=== PATIENT | male | born 1965 | race American Indian/Alaskan Native ===

== ENCOUNTER 2017-01-26 09:29 | Emergency (ER) | payer SELFPAY ==
[2017-01-26 09:46] VITALS: BP 128/81
--- NOTE | 2017-01-26 11:11 | Emergency Department Report ---
HPI - General Chief Complaint: Skin Rash Time Seen by Provider: 01/26/17 11:05 - HPI HPI: Patient is a 51-year-old male with a history of eczema who presents to the ED complaining of eczema break breakout for the past 2-3 weeks. Patient states he has had a flareup for the past 3 weeks. Patient states he got some over-the- counter cream is applied on it has not gotten better. Patient states that eczema like rash is on both of his posterior surfaces of his hands and the back of his neck. Patient admits moderate to severe itching. He denies fever, nausea, vomiting, shortness of breath or any other problems. ED Past Medical Hx - Past Medical History Previous Medical History?: Yes Hx Asthma: Yes Additional medical history: eczema - Surgical History Past Surgical History?: No - Social History Smoking Status: Never Smoker Substance Use Type: Prescribed - Medications Home Medications: Home Medications Medication Instructions Recorded Confirmed Last Taken Type Hyoscyamine Subl [Levsin Sl] 0.125 mg PO Q6HR #15 tablet 06/22/13 Unknown Rx Clindamycin [Clindamycin CAP] 300 mg PO BID #10 cap 01/26/17 Unknown Rx Prednisone [predniSONE 10 mg 10 mg PO .TAPER #1 tab.ds.pk 01/26/17 Unknown Rx (6-Day Pack, 21 Tabs)] Triamcinolone 0.1% [Kenalog 0.1% 1 applic TP TID #1 tube 01/26/17 Unknown Rx OINT] diphenhydrAMINE [Benadryl CAP] 25 mg PO QHS #20 capsule 01/26/17 Unknown Rx ED Review of Systems ROS: Stated complaint: RASH ALL OVER Other details as noted in HPI Constitutional: denies: chills, fever Eyes: denies: eye pain, eye discharge, vision change ENT: denies: ear pain, throat pain Respiratory: denies: cough, shortness of breath, wheezing Cardiovascular: denies: chest pain, palpitations Endocrine: no symptoms reported Gastrointestinal: denies: abdominal pain, nausea, diarrhea Genitourinary: denies: urgency, dysuria Musculoskeletal: denies: back pain, joint swelling, arthralgia Skin: pruritus. denies: rash, lesions Neurological: denies: headache, weakness, numbness, paresthesias, confusion Psychiatric: denies: anxiety, depression Hematological/Lymphatic: denies: easy bleeding, easy bruising Physical Exam - Physical Exam Vital Signs: Vital Signs 01/26/17 09:42 Temperature 97.8 F Pulse Rate 64 Respiratory 18 Rate Blood Pressure 128/81 O2 Sat by Pulse 97 Oximetry Physical Exam: GENERAL: Alert and oriented x3, no apparent distress, Normal Gait, atraumatic. MOUTH:Mouth is well hydrated and without lesions. Tonsils nonerythematous or swollen, Uvula midline, Tongue not elevated. Mucous membranes are moist. Posterior pharynx clear, no exudate or lesions. Patent airways. NECK: Supple. Non edematous, No lymphadenopathy or thyromegaly. EXTREMITIES/MUSCULOSKELETAL: Raised, plaque-like, excoriating lesions on posterior surfaces of the hands and neck. Consistent with infected eczema No cyanosis, clubbing, rash, lesions or edema. Full ROM bilaterally. SKIN: All other areas of the skin was Warm and dry, No other lesions, No ulceration or induration present. ED Course Vital Signs 01/26/17 09:42 Temperature 97.8 F Pulse Rate 64 Respiratory 18 Rate Blood Pressure 128/81 O2 Sat by Pulse 97 Oximetry ED Medical Decision Making - Medical Decision Making Patient is a 51-year-old male presents to ED with infected eczema. Patient received Decadron and Benadryl in the ED. Discussed the patient Patient will be sent home on a course of corticosteroids as well as antibiotics and antibiotic changed agents. Discussed the patient follow up with primary care physician. Vital signs are normal patient is in no acute distress Critical care attestation.: If time is entered above; I have spent that time in minutes in the direct care of this critically ill patient, excluding procedure time. ED Disposition Clinical Impression: Atopic dermatitis Qualifiers: Atopic dermatitis type: other Qualified Code(s): L20.89 - Other atopic dermatitis; L20.8 - Other atopic dermatitis Disposition: DC-01 TO HOME OR SELFCARE Is pt being admited?: No Does the pt Need Aspirin: No Condition: Stable Instructions: Eczema (ED), Acute Rash (ED) Prescriptions: diphenhydrAMINE [Benadryl CAP] 25 mg PO QHS #20 capsule Clindamycin [Clindamycin CAP] 300 mg PO BID #10 cap Prednisone [predniSONE 10 mg (6-Day Pack, 21 Tabs)] 10 mg PO .TAPER #1 tab.ds.pk Triamcinolone 0.1% [Kenalog 0.1% OINT] 1 applic TP TID #1 tube Referrals: PRIMARY CARE, [Primary Care Provider] - 3-5 Days [facility] [Outside] - 3-5 Days [facility] [Outside] - 3-5 Days [facility] [Outside] - 3-5 Days Forms: Accompanied Note, Work/School Release Form(ED) Time of Disposition: 11:57
[2017-01-26] MEDS ORDERED: DECADRON IM ONE (11:32)
[2017-01-26] MEDS ORDERED: BENADRYL PO ONE (11:38)
== END 2017-01-26 12:11 | disposition home or self-care (01) ==
LOC: ED 09:29
DX: L20.89 Other atopic dermatitis (principal); J45.909 Unspecified asthma, uncomplicated
CPT/HCPCS: 96372; 99282; J1100

== ENCOUNTER 2017-02-14 05:35 | Emergency (ER) | payer OTHER ==
[2017-02-14 05:41] VITALS: BP 127/81
[2017-02-14] MEDS ORDERED: DECADRON IM ONE (11:07)
[2017-02-14] MEDS ORDERED: BENADRYL PO ONE (11:07)
--- NOTE | 2017-02-14 11:09 | Emergency Department Report ---
- General Chief complaint: Skin Rash Stated complaint: RASH Time Seen by Provider: 02/14/17 11:05 Source: patient Mode of arrival: Ambulatory Limitations: No Limitations - History of Present Illness Initial comments: Patient reports generalized eczema skin rash that initially started one week ago not relieved with prescribed medications given in the ED last week complaint: rash Onset/Timin -: week(s) Tetanus Up to Date: no Location: generalized Severity: severe Severity scale (0 -10): 9 Quality: constant Consistency: constant Improves with: none Worsens with: none Context: other (unknown) Associated symptoms: itching Treatments Prior to Arrival: other (oral steroids) - Related Data Previous Rx's Medication Instructions Recorded Last Taken Type Hyoscyamine Subl [Levsin Sl] 0.125 mg PO Q6HR #15 tablet 06/22/13 Unknown Rx Clindamycin [Clindamycin CAP] 300 mg PO BID #10 cap 01/26/17 Unknown Rx diphenhydrAMINE [Benadryl CAP] 25 mg PO QHS #20 capsule 01/26/17 Unknown Rx Prednisone [predniSONE 10 mg 10 mg PO .TAPER #1 tab.ds.pk 02/14/17 Unknown Rx (6-Day Pack, 21 Tabs)] Triamcinolone 0.1% [Kenalog 0.1% 1 applic TP TID #1 tube 02/14/17 Unknown Rx OINT] hydrOXYzine HCL [Atarax] 10 mg PO Q6HR #20 tablet 02/14/17 Unknown Rx Allergies Allergy/AdvReac Type Severity Reaction Status Date / Time Penicillins Allergy Rash Verified 06/22/13 17:18 Abscess Boil HPI - HPI Chief Complaint: Skin Rash Stated Complaint: RASH Home Medications: Previous Rx's Medication Instructions Recorded Last Taken Type Hyoscyamine Subl [Levsin Sl] 0.125 mg PO Q6HR #15 tablet 06/22/13 Unknown Rx Clindamycin [Clindamycin CAP] 300 mg PO BID #10 cap 01/26/17 Unknown Rx diphenhydrAMINE [Benadryl CAP] 25 mg PO QHS #20 capsule 01/26/17 Unknown Rx Prednisone [predniSONE 10 mg 10 mg PO .TAPER #1 tab.ds.pk 02/14/17 Unknown Rx (6-Day Pack, 21 Tabs)] Triamcinolone 0.1% [Kenalog 0.1% 1 applic TP TID #1 tube 02/14/17 Unknown Rx OINT] hydrOXYzine HCL [Atarax] 10 mg PO Q6HR #20 tablet 02/14/17 Unknown Rx Allergies/Adverse Reactions: Allergies Allergy/AdvReac Type Severity Reaction Status Date / Time Penicillins Allergy Rash Verified 06/22/13 17:18 ED Review of Systems ROS: Stated complaint: RASH Other details as noted in HPI Constitutional: denies: chills, diaphoresis, fever, malaise, weakness Eyes: denies: eye pain ENT: denies: ear pain, throat pain Respiratory: denies: cough, orthopnea, shortness of breath, SOB with exertion, SOB at rest Cardiovascular: denies: chest pain, palpitations, dyspnea on exertion, orthopnea , edema, syncope Gastrointestinal: denies: abdominal pain, nausea, vomiting, diarrhea, constipation Musculoskeletal: denies: back pain, joint swelling, arthralgia Skin: rash, pruritus. denies: lesions, change in color, change in hair/nails Neurological: denies: headache, weakness, numbness, paresthesias, confusion, abnormal gait, vertigo Psychiatric: denies: anxiety, depression Hematological/Lymphatic: denies: easy bleeding, easy bruising, swollen glands ED Past Medical Hx - Past Medical History Hx Asthma: Yes Additional medical history: eczema - Social History Smoking Status: Never Smoker Substance Use Type: None - Medications Home Medications: Home Medications Medication Instructions Recorded Confirmed Last Taken Type Hyoscyamine Subl [Levsin Sl] 0.125 mg PO Q6HR #15 tablet 06/22/13 Unknown Rx Clindamycin [Clindamycin CAP] 300 mg PO BID #10 cap 01/26/17 Unknown Rx diphenhydrAMINE [Benadryl CAP] 25 mg PO QHS #20 capsule 01/26/17 Unknown Rx Prednisone [predniSONE 10 mg 10 mg PO .TAPER #1 tab.ds.pk 02/14/17 Unknown Rx (6-Day Pack, 21 Tabs)] Triamcinolone 0.1% [Kenalog 0.1% 1 applic TP TID #1 tube 02/14/17 Unknown Rx OINT] hydrOXYzine HCL [Atarax] 10 mg PO Q6HR #20 tablet 02/14/17 Unknown Rx ED Physical Exam - General Limitations: No Limitations General appearance: alert, in no apparent distress - Head Head exam: Present: atraumatic, normocephalic, normal inspection - ENT ENT exam: Present: normal exam, normal orophraynx, mucous membranes moist - Neck Neck exam: Present: normal inspection, full ROM. Absent: tenderness, meningismus, lymphadenopathy, thyromegaly - Respiratory Respiratory exam: Present: normal lung sounds bilaterally. Absent: respiratory distress, wheezes, rales, rhonchi, stridor, chest wall tenderness, accessory muscle use, decreased breath sounds, prolonged expiratory - Cardiovascular Cardiovascular Exam: Present: regular rate, normal rhythm, normal heart sounds. Absent: systolic murmur, diastolic murmur, rubs, gallop - Back Exam Back exam: Present: normal inspection, full ROM, rash noted (maculopapular eczematous appearing rask upper back). Absent: CVA tenderness (L) - Neurological Exam Neurological exam: Present: alert, oriented X3, CN II-XII intact, normal gait, reflexes normal. Absent: abnormal gait, motor sensory deficit - Psychiatric Psychiatric exam: Present: normal affect, normal mood - Skin Skin exam: Present: rash (maculopapular eczematous appearing rash to hands, abdominal and upper back) ED Course Vital Signs 02/14/17 02/14/17 05:38 05:45 Temperature 97.7 F 97.7 F Pulse Rate 62 68 Respiratory 16 16 Rate Blood Pressure 127/81 127/81 O2 Sat by Pulse 99 99 Oximetry ED Medical Decision Making - Lab Data Vital Signs 02/14/17 02/14/17 05:38 05:45 Temperature 97.7 F 97.7 F Pulse Rate 62 68 Respiratory 16 16 Rate Blood Pressure 127/81 127/81 O2 Sat by Pulse 99 99 Oximetry - Medical Decision Making During the course of ED, steroidal injection and oral antihistamine medications were ordered. Patient was sent home with prescription for prednisone, atarax, triamcinolone ointment and a referral consult for dermatology for evaluation of eczema flare-up. He verbalized understanding - Differential Diagnosis Eczema, Contact Dermatitis Critical care attestation.: If time is entered above; I have spent that time in minutes in the direct care of this critically ill patient, excluding procedure time. ED Disposition Clinical Impression: Eczema Qualifiers: Eczema type: unspecified Qualified Code(s): L30.9 - Dermatitis, unspecified Disposition: DC-01 TO HOME OR SELFCARE Is pt being admited?: No Does the pt Need Aspirin: No Condition: Stable Instructions: Eczema (ED) Additional Instructions: Take medication as directed. No drinking or driving while taking medications. Follow up with the selective referral given at discharge Prescriptions: hydrOXYzine HCL [Atarax] 10 mg PO Q6HR #20 tablet Prednisone [predniSONE 10 mg (6-Day Pack, 21 Tabs)] 10 mg PO .TAPER #1 tab.ds.pk Triamcinolone 0.1% [Kenalog 0.1% OINT] 1 applic TP TID #1 tube Referrals: SAMANTHA MONAE MD [Staff Physician] - 3-5 Days Forms: Work/School Release Form(ED) Time of Disposition: 11:17
== END 2017-02-14 11:25 | disposition home or self-care (01) ==
LOC: ED 05:35
DX: L30.9 Dermatitis, unspecified (principal); J45.909 Unspecified asthma, uncomplicated; Z88.0 Allergy status to penicillin
CPT/HCPCS: 96372; 99282; J1100

== ENCOUNTER 2017-04-22 23:12 | Emergency (ER) | payer SELFPAY ==
[2017-04-22 23:30] VITALS: BP 122/78
[2017-04-23] MEDS ORDERED: DECADRON IM ONE (02:31)
--- NOTE | 2017-04-23 02:35 | Emergency Department Report ---
ED Rash HPI - HPI Chief Complaint: Skin Rash Stated Complaint: ECZEMA Time Seen by Provider: 04/23/17 02:03 Duration: 2 months Location: Chest, Back, Upper Extremities, Lower Extremities Rash Symptoms: Yes Itching, Yes Blistering, No Facial Swelling, No Tongue/Oral Swelling, No Breathing Difficulties, No Choking Sensation, No Wheezing/Dyspnea, No Peeling, No Fever, No Lightheaded, No Malaise, No Myalgias Severity: moderate Other History: 51-year-old male past medical history persistent rash for 2 months presents with complaint of itchy dry skin on hands and feet chest and back lower extremities. Has been ongoing for 2 months. Patient denies any new foods cosmetics medicines or any other new possible allergens including pets. Patient states it spontaneously started in February and has not resolved. Skin is itchy and patient has been scratching it for some time. Has taken antihistamines with minimal relief ED Review of Systems ROS: Stated complaint: ECZEMA Other details as noted in HPI Constitutional: denies: chills, fever Eyes: denies: eye pain, eye discharge, vision change ENT: denies: ear pain, throat pain Respiratory: denies: cough, shortness of breath, wheezing Cardiovascular: denies: chest pain, palpitations Endocrine: no symptoms reported Gastrointestinal: denies: abdominal pain, nausea, diarrhea Genitourinary: denies: urgency, dysuria Musculoskeletal: denies: back pain, joint swelling, arthralgia Skin: as per HPI (dry itchy scaly skin on hands and feet upper extremities chest and back), pruritus. denies: rash, lesions Neurological: denies: headache, weakness, paresthesias Psychiatric: denies: anxiety, depression Hematological/Lymphatic: denies: easy bleeding, easy bruising ED Past Medical Hx - Past Medical History Previous Medical History?: Yes Hx Asthma: Yes Additional medical history: eczema - Surgical History Past Surgical History?: No - Social History Smoking Status: Current Every Day Smoker Substance Use Type: None - Medications Home Medications: Home Medications Medication Instructions Recorded Confirmed Last Taken Type Hyoscyamine Subl [Levsin Sl] 0.125 mg PO Q6HR #15 tablet 06/22/13 Unknown Rx Clindamycin [Clindamycin CAP] 300 mg PO BID #10 cap 01/26/17 Unknown Rx diphenhydrAMINE [Benadryl CAP] 25 mg PO QHS #20 capsule 01/26/17 Unknown Rx Prednisone [predniSONE 10 mg 10 mg PO .TAPER #1 tab.ds.pk 02/14/17 Unknown Rx (6-Day Pack, 21 Tabs)] Triamcinolone 0.1% [Kenalog 0.1% 1 applic TP TID #1 tube 02/14/17 Unknown Rx OINT] Betamethasone Dipropionate 1 applicatio TP BID #1 cream..g. 04/23/17 Unknown Rx [Betamethasone Dipropionate 0.05% Cream] Loratadine [Claritin] 10 mg PO DAILY #30 tablet 04/23/17 Unknown Rx Mineral Oil/Hydrophil Petrolat 1 applicatio TP BID #1 oint...g. 04/23/17 Unknown Rx [Aquaphor Healing Ointment] Permethrin 5% [Acticin 5% CREAM] 1 applicatio TP ONCE #1 tube 04/23/17 Unknown Rx Vits A and D/White Pet/Lanolin [A 1 applic TP BID #1 oint...g. 04/23/17 Unknown Rx and D Ointment] hydrOXYzine HCL [Atarax] 10 mg PO Q6HR #20 tablet 04/23/17 Unknown Rx Rash Exam - Exam General: Vital signs noted. No distress. Alert and acting appropriately. HEENT: No Periorbital Edema, No Conjuctival Injection, No Chemosis, No Perioral Edema, No Tongue Edema, No Uvular Edema, No Compromised Airway, No Drooling Lungs: Yes Good Air Exchange (Normal Breath Sounds), No Wheezes, No Ronchi, No Stridor, No Cough, No Labored Respirations, No Retractions, No Use of Accessory Muscles, No Other Abnormal Lung Sounds Heart: Yes Regular, No Murmur Skin: Yes Maculopapular Rash, Yes Excoriations, No Urticarial Rash, No Morbilliform rash, No Bulla(e), No Weeping, No Tenderness, No Erythema, No Edema , No Encrustations, No Other Other: Positive: Abdomen Normal, Neurologic Normal, Musculoskeletal Normal ED Course Vital Signs 04/22/17 23:27 Temperature 97.8 F Pulse Rate 79 Respiratory 17 Rate Blood Pressure 122/78 O2 Sat by Pulse 99 Oximetry ED Medical Decision Making - Medical Decision Making A/P: Dyshidrotic eczema versus scabies 1-empiric treatment with permethrin cream to see if this resolves rash 2-betamethasone topical cream 3-Claritin, Atarax 4- I advised patient to continue oatmeal baths and Aquaphor + A&D ointment 5-I referred patient to dermatology Critical care attestation.: If time is entered above; I have spent that time in minutes in the direct care of this critically ill patient, excluding procedure time. ED Disposition Clinical Impression: Dyshidrotic eczema, Rash and nonspecific skin eruption Disposition: - TO HOME OR SELFCARE Is pt being admited?: No Does the pt Need Aspirin: No Condition: Stable Instructions: Eczema (ED), Scabies (ED) Prescriptions: Betamethasone Dipropionate [Betamethasone Dipropionate 0.05% Cream] 1 applicatio TP BID #1 cream..g. hydrOXYzine HCL [Atarax] 10 mg PO Q6HR #20 tablet Loratadine [Claritin] 10 mg PO DAILY #30 tablet Mineral Oil/Hydrophil Petrolat [Aquaphor Healing Ointment] 1 applicatio TP BID # 1 oint...g. Permethrin 5% [Acticin 5% CREAM] 1 applicatio TP ONCE #1 tube Vits A and D/White Pet/Lanolin [A and D Ointment] 1 applic TP BID #1 oint...g. Referrals: [facility] [Provider Group] - 3-5 Days Forms: Work/School Release Form(ED) Time of Disposition: 02:46
== END 2017-04-23 03:27 | disposition home or self-care (01) ==
LOC: ED 23:12
DX: L30.1 Dyshidrosis [pompholyx] (principal); R21 Rash and other nonspecific skin eruption; J45.909 Unspecified asthma, uncomplicated; F17.200 Nicotine dependence, unspecified, uncomplicated
CPT/HCPCS: 96372; 99281; J1100

== ENCOUNTER 2021-12-02 13:50 | Emergency (ER) | payer SELFPAY | END 2021-12-03 16:33 | disposition left against medical advice (07) | LOC: ED 13:50 | DX: S09.93XA Unspecified injury of face, initial encounter (principal); Z53.21 Procedure and treatment not carried out due to patient leaving prior to being seen by health care provider; X58.XXXA Exposure to other specified factors, initial encounter; Y93.89 Activity, other specified; Y92.89 Other specified places as the place of occurrence of the external cause; Y99.8 Other external cause status ==